=== PATIENT | female | born 1995 | race Caucasian/White ===

== ENCOUNTER → 2022-10-03 08:20 | Outpatient (REF) | payer OTHER, SELFPAY ==
--- NOTE | 2022-10-03 11:00 | PC.NURSE ---
TO LAB DRAW STATION FOR OUTPATIENT CORTROSYN STIMULATION TEST. SHE IS 15 WEEKS . DISCUSSED LITERATURE INFORMATION REGARDING ADMINISTRATION OF CORTROSYN DURING , AND RISKS / BENEFITS OF ADRENAL INSUFFICIENCY DURING / DELIVERY SUCH HYPERTENSION, PREECLAMPSIA, PRE-TERM DELIVERY, ADRENAL CRISIS AND ADVANTAGES OF KNOWING DIAGNOSIS DURING . HAS BEEN EXPERIENCING DIZZINESS AND LOW BLOOD PRESSURE AND LOW BLOOD SUGAR. IS WEARING A BLOOD SUGAR MONITORING DEVICE. UNDERSTANDS RISKS / BENEFITS AND WISHES TO PROCEED. LAB STAFF MEMBER INFORMED OF ADMINISTRATION TIME AND PATIENT INFORMED OF TIMES TO HAVE BLOOD REDRAWN. DISMISSED TO WAITING ROOM TO WAIT FOR NEXT BLOOD DRAW.
== END ==
LOC: ANHOUTPT 08:20
PROVIDERS: PCP Family Medicine; Visit Provider Internal Medicine Endocrinology, Diabetes & Metabolism
DX: E27.40 Unspecified adrenocortical insufficiency (principal)
CPT/HCPCS: 82533; 96372; J0834

== ENCOUNTER 2024-10-30 13:40 | Emergency (ER) | payer MEDICAID, SELFPAY ==
--- NOTE | 2024-10-30 13:49 | ED_ITS ---
HPI - Female Genitourinary General Chief complaint: Urogenital-Female Stated complaint: Urinary Problems Time Seen by Provider: 10/30/24 14:05 Source: patient Mode of arrival: ambulatory Limitations: no limitations History of Present Illness HPI Narrative: Mimi is a 29-year-old female patient presenting to the clinic today with complaints pelvic pain, odorous- fishy smelling white vaginal discharge, and some discomfort with urination x Denies any fevers, chills, body aches. Denies any new sexual partners. Is in a monogamous heterosexual relationship. She has had a tubal ligation. Last menstrual period was last month. No concern for Related Data Home Medications ?Medication ?Instructions ?Recorded ?Confirmed ?Last Taken ?Type buspirone 5 mg tablet mg 10/30/24 Unknown History sertraline 100 mg tablet mg 10/30/24 Unknown History Allergies Allergy/AdvReac Type Severity Reaction Status Date / Time codeine Allergy Unknown Vomiting Verified 10/30/24 13:56 Review of Systems Review of Systems: Pertinent positives per HPI. Patient denies any fever, chills, rash, headache, visual changes, dizziness, cough, runny nose, sore throat, shortness of breath, chest pain, palpitations, nausea, vomiting, diarrhea, constipation, abdominal pain, or any urinary issues. [facility] Past Medical History Medical History Ortiz's thyroiditis Hypoglycemia Depression Shoulder pain Surgical History Surgical History History of oral surgery as a child Family History Family History Grandparent Hypertension Cerebrovascular accident Mother Family history of malignant neoplasm of ovary Patient's mother is in good health Father Patient's father is in good health Sibling Patient's sister is in good health Other Family history of blood dyscrasia Family history of malignant neoplasm of esophagus Social History Social History Smoking status: Never smoker Second hand tobacco smoke exposure: No Alcohol intake: current Comments At the time of my signature, I reviewed and agree with the nursing past medical, surgical, social, and family history. There is no relevant family history pertinent to the patient complaint. Exam Narrative: General: Well-developed, well nourished, in no apparent distress Head: Normocephalic, atraumatic. Cardio: Regular rate and rhythm, s1 and s2 normal, no murmur appreciated. Resp: Clear to auscultation bilaterally, no rhonchi, rales, wheezing or rubs. Abdomen: Soft, pliable, bowel sounds present in all quadrants, suprapubic-tender to palpation, no CVAT tenderness. : Pelvic exam performed with (Elena PINK) at bedside. Verbal consent obtained from patient. Normal external female genitalia without lesions or masses, Urinary meatus: patent without discharge, Vagina: No lesions, masses, or discharge, Cervix: pink without mass, lesions, or tenderness. Thick white odorus discharge in pelvic os Adnexa: without palpable mass or tenderness. Course Course Emergency Course: Portions of this record may have been created with voice recognition software. Level of Care: Express Care Visit Vital Signs Vital signs: Vital Signs Temperature 36.2 C L 10/30/24 13:52 Pulse Rate 103 H 10/30/24 13:52 Respiratory Rate 20 10/30/24 13:52 Blood Pressure 108/57 L 10/30/24 13:52 Pulse Oximetry 98 10/30/24 13:52 Oxygen Delivery Room Air 10/30/24 13:52 Temperature 36.2 C L 10/30/24 13:52 Pulse Rate 103 H 10/30/24 13:52 Respiratory Rate 20 10/30/24 13:52 Blood Pressure 108/57 L 10/30/24 13:52 Pulse Oximetry 98 10/30/24 13:52 Oxygen Delivery Room Air 10/30/24 13:52 Vital signs reviewed MDM - Female Genitourinary MDM Narrative Medical decision making narrative: At the time of visit patient is resting comfortably on the exam table. Patient appears to be nontoxic. Labs: Urinalysis negative for any sign of infection, blood, or protein. Genital culture, chlamydia, gonorrhea, Trichomonas and bacterial vaginosis swabs were obtained and sent to the lab Plan: I suspect patient likely has bacterial vaginosis. Offered to complete STI testing and patient agreed. Offered to allow patient to self swab and she declined and states she was not comfortable with self swabbing. Stated that her started using a new lubricant after pelvic exam was completed and that might have caused bacterial vaginosis. Supportive measures were discussed with the patient and they voiced understanding discharge instructions and agrees to treatment plan. Return precautions reviewed Differential Diagnosis Differential diagnosis: Likely urinary tract infection, bacterial vaginosis, trichomoniasis, cervicitis, ovarian cyst, vaginitis and cystitis Lab Data Labs: Lab Results 10/30/24 Range/Units 13:57 POC Urine Color Yellow POC Urine Clarity Clear POC Urine pH 5.5 POC Ur Specif [place] 1.025 POC Urine Protein Negative (Negative) POC Ur Glucose (UA) Negative (Negative) POC Urine Ketones Negative (Negative) POC Urine Blood Negative (Negative) POC Urine Nitrite Negative (Negative) POC Urine Bilirubin Negative (Negative) POC Urine Urobilinogen 0.2 POC U Leukocyte Esteras Negative (Negative) Discharge Plan Discharge Clinical Impression: Vaginitis Qualifiers: Chronicity: acute Qualified Code(s): N76.0 - Acute vaginitis Patient Disposition: Home Condition: Stable Instructions: Antibiotic Form, Bacterial Vaginosis (ED) Additional Instructions: I suspect you likely have bacterial vaginosis. Take metronidazole as prescribed We have tested you for STIs in the clinic today. Avoid any sexual activity- includes oral, anal, or vaginal intercourse until you get results back and have completed any additional recommended treatment regimens. We will contact you if testing is positive and make sure your treatment was appropriate for the type of STI. If symptoms worsen after treatment recommend reevaluation with your PCP or Express care. Patient Language: Lithuanian Prescriptions: New metronidazole 500 mg tablet 500 mg PO BID 7 Days Qty: 14 0RF No Action buspirone 5 mg tablet sertraline 100 mg tablet Follow-up/Referrals: Lyle,Royal Fleming PA-C [Primary Care Provider] - Time of Disposition: 14:19 Quality NIH Nursing Documentation ED NIHSS nursing documentation: reviewed/agree
[2024-10-30 13:52] VITALS: BP 108/57; PULSE 103; RESP 20; TEMP 36.2; O2SAT 98
[2024-10-30 14:04] LABS: EDUAAPPEAR Clear; EDUABILI Negative (Negative); EDUABLOOD Negative (Negative); EDUACOLOR1 Yellow; EDUAGLUCOSE Negative (Negative); EDUAKETONE Negative (Negative); EDUALEUKO Negative (Negative); EDUANITRATE Negative (Negative); EDUAPH 5.5; EDUAPROTEIN Negative (Negative); EDUASPGRAVITY 1.025; EDUAUROBILI 0.2
[2024-10-30 18:16] LABS: Trichomonas Vag PCR NOT DETECTED (NOT DETECTE)
[2024-10-30 18:39] LABS: Chlamydia trachomatis NOT DETECTED (NOT DETECTE); Neisseria gonorrhoeae PCR NOT DETECTED (NOT DETECTE)
[2024-11-01 15:54] LABS: Bacterial Vaginosis POSITIVE (NEGATIVE)
== END 2024-10-30 14:25 | disposition home or self-care (01) ==
PROVIDERS: Emergency Provider Nurse Practitioner Family; PCP Physician Assistant
DX: N76.0 Acute vaginitis (principal); Z79.899 Other long term (current) drug therapy; Z11.3 Encounter for screening for infections with a predominantly sexual mode of transmission
CPT/HCPCS: 81003; 81513; 87070; 87491; 87591; 87661; 99213; G0463